=== PATIENT | female | born 1955 | race Caucasian/White ===

== ENCOUNTER 2017-02-24 13:39 | Inpatient (IN) | payer MEDICAID ==
[~2017-02-24] VITALS: Ht 170.2 cm; Wt 76.7 kg
[2017-02-24 15:40] VITALS: BP 128/74; PULSE 68; RESP 18; TEMP 97; O2SAT 98
[2017-02-24 16:03] VITALS: BP 145/73; PULSE 78; RESP 16; TEMP 97.5; O2SAT 94
[2017-02-24] MEDS ORDERED: MORPHINE 2 MG/ML INJ. SYRINGE ONE (17:12)
[2017-02-24] MEDS ORDERED: ACET325T53 PO (17:18)
[2017-02-24] MEDS ORDERED: HYDR-1189 PO (17:20)
[2017-02-24] MEDS ORDERED: ALBU2.5V7 INH (17:21)
[2017-02-24] MEDS ORDERED: CAL1TABL5 PO (17:23)
[2017-02-24] MEDS ORDERED: [UNRECOGNIZED DRUG - CODE] IV (17:42)
[2017-02-24] MEDS ORDERED: LEVO500T20 PO (17:46)
[2017-02-24] MEDS ORDERED: DIVA500T4 PO (17:46)
[2017-02-24] MEDS ORDERED: OLAN5TAB39 PO (18:36)
[2017-02-24] MEDS ORDERED: MAGN400O4 PO (18:36)
[2017-02-24] MEDS ORDERED: MORP2SYR3 IV (18:36)
[2017-02-24] MEDS ORDERED: ATII2 INJ (18:36)
[2017-02-24] MEDS ORDERED: HEPA500014 SUBCUT (18:41)
[2017-02-24] MEDS ORDERED: LEVO500P8 IV (18:41)
[2017-02-24] MEDS ORDERED: LORA2VIA31 (18:41)
[2017-02-24] MEDS ORDERED: THIA100T13 PO (18:45)
[2017-02-24] MEDS ORDERED: DITXL5 PO (18:45)
[2017-02-24] MEDS ORDERED: ONDA4TAB5 PO (18:45)
[2017-02-24] MEDS ORDERED: ZOLP10TA2 PO (18:46)
[2017-02-24] MEDS ORDERED: ALBUTEROL SULFATE 0.083% 2.5 MG/3 ML VIAL.NEB INH PRN (19:45)
[2017-02-24] MEDS ORDERED: ACETAMINOPHEN 325 MG TABLET PO PRN (19:45)
[2017-02-24 20:16] VITALS: BP 132/71; PULSE 75; RESP 18; TEMP 97.8; O2SAT 95
[2017-02-24 20:20] VITALS: BP 132/71; PULSE 77
[2017-02-24] MEDS ORDERED: MILK OF MAGNESIA 30 ML UDC PO SCH (20:45)
[2017-02-24] MEDS ORDERED: LORazepam 2 MG/ML VIAL IV SCH (20:45)
[2017-02-24] MEDS ORDERED: OLANZapine 5 MG TAB.RAPDIS PO SCH (21:00)
[2017-02-24] MEDS ORDERED: DIVALPROEX SODIUM 500 MG TAB.SR.24H (DEPAKOTE ER) PO SCH (21:00)
[2017-02-24] MEDS: OXYBUTYNIN CHLORIDE 5 MG TABLET PO SCH (21:25)
[2017-02-24] MEDS: DIVALPROEX SODIUM 500 MG TAB.SR.24H (DEPAKOTE ER) PO SCH (21:25)
[2017-02-24] MEDS: ZOLPIDEM TARTRATE 5 MG TABLET PO PRN (21:26)
[2017-02-25] VITALS (7 sets, daily range): BP systolic 106–136; BP diastolic 62–79; PULSE 72–104; RESP 16–21; TEMP 97.1–98.6; O2SAT 92–96
[2017-02-25 04:35] LABS: BILIRUBIN,URINE NEGATIVE (NEGATIVE); BLOOD, URINE 3+ (NEGATIVE); CLARITY/URINE CLEAR (CLEAR); COLOR,URINE YELLOW (YELLOW); GLUCOSE,URINE NEGATIVE (NEGATIVE); KETONES,URINE TRACE (NEGATIVE); LEUKOCYTE ESTERASE ,URINE NEGATIVE (NEGATIVE); NITRITE, URINE NEGATIVE (NEGATIVE); PROTEIN URINE NEGATIVE (NEGATIVE)
[2017-02-25 04:53] LABS: BACTERIA,URINE FEW /HPF (None Seen); RBC,URINE 50-80 /HPF (0-3)
[2017-02-25 04:54] LABS: MUCUS,URINE 1+ /LPF (None Seen)
[2017-02-25 06:56] LABS: BASOPHILS # (AUTO) 0.1 K/uL (0.0-0.2); BASOPHILS % (AUTO) 0.6 % (0.0-2.0); EOSINOPHILS # (AUTO) 0.1 K/uL (0.0-0.4); EOSINOPHILS % (AUTO) 1.1 % (0.0-4.0); HEMATOCRIT 29.3 % (36-48); HEMOGLOBIN 9.6 g/dL (12.0-16.0); LYMPHOCYTES # (AUTO) 3.5 K/uL (1.0-5.5); LYMPHOCYTES % (AUTO) 27.3 % (20.5-51.5); MEAN CORPUSCULAR HEMOGLOBIN 26 pg (27-31); MEAN CORPUSCULAR HGB CONC 33 % (32-36); MEAN CORPUSCULAR VOLUME 79 fL (79.0-98.0); MONOCYTES # (AUTO) 1.2 K/uL (0.0-1.0); MONOCYTES % (AUTO) 9.4 % (1.7-9.3); NEUTROPHILS # (AUTO) 8.1 K/uL (1.8-7.7); NEUTROPHILS % (AUTO) 61.6 % (40.0-70.0); PLATELET COUNT (AUTO) 189 K/uL (130-430); RED BLOOD CELL COUNT(AUTO) 3.71 MIL/uL (4.2-6.2); RED CELL DISTRIBUTION WIDTH 12.7 % (9.0-15.0)
[2017-02-25 07:08] LABS: CALCIUM 8.8 mg/dL (8.4-11.0); CREATININE 0.7 mg/dL (0.55-1.30); POTASSIUM 4.1 mmol/L (3.5-5.1)
[2017-02-25] MEDS ORDERED: LEVOFLOXACIN 500 MG/D5W 100 ML PIGGYBACK IV SCH (09:00)
[2017-02-25] MEDS: THIAMINE HCL 100 MG TABLET PO SCH (09:00)
[2017-02-25] MEDS: LEVOFLOXACIN 500 MG/D5W 100 ML IV SCH (10:14)
[2017-02-25] MEDS ORDERED: OLANZapine 5 MG TABLET PO ONE (14:15)
[2017-02-25] MEDS: CALCIUM CARBONATE/VITAMIN D3 1 TAB TABLET PO SCH (14:20)
[2017-02-25] MEDS: OXYBUTYNIN CHLORIDE 5 MG TABLET PO SCH ×2 (14:21→21:21)
[2017-02-25] MEDS: MORPHINE 2 MG/ML INJ. SYRINGE IVP PRN ×3 (14:22→23:26)
[2017-02-25] MEDS: IPRATROPIUM/ALBUTEROL SULFATE 3 ML AMPUL.NEB INH SCH ×3 (15:34→23:12)
[2017-02-25] MEDS: OLANZapine 5 MG TABLET PO SCH (21:21)
[2017-02-25] MEDS: DIVALPROEX SODIUM 500 MG TAB.SR.24H (DEPAKOTE ER) PO SCH (21:21)
[2017-02-25] MEDS: ZOLPIDEM TARTRATE 5 MG TABLET PO PRN (23:27)
[2017-02-26] VITALS (7 sets, daily range): BP systolic 88–120; BP diastolic 52–72; PULSE 71–92; RESP 18–20; TEMP 97.1–98.6; O2SAT 85–95
[2017-02-26] MEDS: IPRATROPIUM/ALBUTEROL SULFATE 3 ML AMPUL.NEB INH SCH ×6 (03:00→23:00)
[2017-02-26 06:46] LABS: BASOPHILS # (AUTO) 0.1 K/uL (0.0-0.2); BASOPHILS % (AUTO) 0.5 % (0.0-2.0); EOSINOPHILS # (AUTO) 0.2 K/uL (0.0-0.4); EOSINOPHILS % (AUTO) 1.9 % (0.0-4.0); HEMOGLOBIN 9.3 g/dL (12.0-16.0); LYMPHOCYTES # (AUTO) 3.2 K/uL (1.0-5.5); MEAN CORPUSCULAR HEMOGLOBIN 26 pg (27-31); MEAN CORPUSCULAR HGB CONC 32 % (32-36); MEAN CORPUSCULAR VOLUME 80 fL (79.0-98.0); MONOCYTES # (AUTO) 1.1 K/uL (0.0-1.0); MONOCYTES % (AUTO) 9.9 % (1.7-9.3); NEUTROPHILS # (AUTO) 6.8 K/uL (1.8-7.7); NEUTROPHILS % (AUTO) 59.7 % (40.0-70.0); PLATELET COUNT (AUTO) 214 K/uL (130-430); RED BLOOD CELL COUNT(AUTO) 3.65 MIL/uL (4.2-6.2); RED CELL DISTRIBUTION WIDTH 12.7 % (9.0-15.0); WHITE BLOOD COUNT (AUTO) 11.4 K/uL (4.8-10.8)
[2017-02-26 06:48] LABS: CALCIUM 8.9 mg/dL (8.4-11.0); CREATININE 0.77 mg/dL (0.55-1.30); POTASSIUM 3.8 mmol/L (3.5-5.1)
[2017-02-26 06:49] LABS: ALBUMIN 2.6 g/dL (3.4-4.8); TOTAL BILIRUBIN 0.6 mg/dL (0.0-1.0); TOTAL PROTEIN, SERUM 6.4 g/dL (6.4-8.3)
[2017-02-26] MEDS: MORPHINE 2 MG/ML INJ. SYRINGE IVP PRN (08:15)
[2017-02-26] MEDS: LEVOFLOXACIN 500 MG/D5W 100 ML IV SCH (08:15)
[2017-02-26] MEDS: OXYBUTYNIN CHLORIDE 5 MG TABLET PO SCH ×2 (09:00→21:46)
[2017-02-26] MEDS: CALCIUM CARBONATE/VITAMIN D3 1 TAB TABLET PO SCH (09:00)
[2017-02-26] MEDS: OLANZapine 5 MG TABLET PO SCH ×2 (09:00→21:46)
[2017-02-26] MEDS: THIAMINE HCL 100 MG TABLET PO SCH (09:00)
[2017-02-26] MEDS ORDERED: POLYMYXIN 500,000/BACIT.10,000 UNITS in NS IRR 1 L IR ONE (09:58)
[2017-02-26] MEDS ORDERED: LR 1,000 ML IV.SOLN IV ONE (10:26)
[2017-02-26] MEDS ORDERED: DEXAMETHASONE SOD PHOSPHATE 4 MG/ML VIAL IVP ONE (10:26)
[2017-02-26] MEDS ORDERED: METOCLOPRAMIDE HCL 10 MG/2 ML VIAL IVP ONE (10:26)
[2017-02-26] MEDS ORDERED: MIDAZOLAM HCL 5 MG/5 ML VIAL IVP ONE (10:26)
[2017-02-26] MEDS ORDERED: ePHEDrine sulfate 50 MG/ML VIAL IVP PRN (11:45)
[2017-02-26] MEDS ORDERED: ONDANSETRON HCL 4 MG/2 ML VIAL IVP PRN ×2 (11:45)
[2017-02-26] MEDS ORDERED: DIPHENHYDRAMINE INJ 50 MG/ML VIAL IVP PRN (11:45)
[2017-02-26] MEDS ORDERED: KETOROLAC TROMETHAMINE 30 MG VIAL IM PRN (11:45)
[2017-02-26] MEDS ORDERED: fentaNYL CITRATE/PF 100 MCG/2 ML AMP IVP PRN (11:45)
[2017-02-26] MEDS ORDERED: LR 1,000 ML IV ONE (11:45)
[2017-02-26] MEDS ORDERED: NALBUPHINE HCL 10 MG/ML AMP IVP PRN (11:45)
[2017-02-26] MEDS ORDERED: NALOXONE HCL 0.4 MG/ML AMP (NARCAN) IVP PRN (11:45)
[2017-02-26] MEDS ORDERED: MORPHINE SULFATE 10MG/10ML PF AMP ONE (12:00)
[2017-02-26 18:14] LABS: BASOPHILS # (AUTO) 0.1 K/uL (0.0-0.2); BASOPHILS % (AUTO) 0.8 % (0.0-2.0); HEMATOCRIT 29.5 % (36-48); HEMOGLOBIN 9.4 g/dL (12.0-16.0); LYMPHOCYTES # (AUTO) 1.1 K/uL (1.0-5.5); LYMPHOCYTES % (AUTO) 10.3 % (20.5-51.5); MEAN CORPUSCULAR HEMOGLOBIN 26 pg (27-31); MEAN CORPUSCULAR HGB CONC 32 % (32-36); MEAN CORPUSCULAR VOLUME 80 fL (79.0-98.0); MONOCYTES # (AUTO) 0.4 K/uL (0.0-1.0); MONOCYTES % (AUTO) 4.1 % (1.7-9.3); NEUTROPHILS # (AUTO) 9.1 K/uL (1.8-7.7); NEUTROPHILS % (AUTO) 84.8 % (40.0-70.0); PLATELET COUNT (AUTO) 245 K/uL (130-430); RED BLOOD CELL COUNT(AUTO) 3.67 MIL/uL (4.2-6.2); RED CELL DISTRIBUTION WIDTH 12.6 % (9.0-15.0); WHITE BLOOD COUNT (AUTO) 10.7 K/uL (4.8-10.8)
[2017-02-26] MEDS: ZOLPIDEM TARTRATE 5 MG TABLET PO PRN (21:46)
[2017-02-26] MEDS: DIVALPROEX SODIUM 500 MG TAB.SR.24H (DEPAKOTE ER) PO SCH (21:46)
[2017-02-27] VITALS (7 sets, daily range): BP systolic 92–116; BP diastolic 50–74; PULSE 63–85; RESP 16–18; TEMP 96.6–97.2; O2SAT 91–97
[2017-02-27] MEDS: IPRATROPIUM/ALBUTEROL SULFATE 3 ML AMPUL.NEB INH SCH ×6 (03:00→23:46)
[2017-02-27 06:35] LABS: BASOPHILS % (AUTO) 0.1 % (0.0-2.0); EOSINOPHILS % (AUTO) 0.1 % (0.0-4.0); HEMATOCRIT 25.8 % (36-48); HEMOGLOBIN 8.4 g/dL (12.0-16.0); LYMPHOCYTES # (AUTO) 1.5 K/uL (1.0-5.5); LYMPHOCYTES % (AUTO) 10.6 % (20.5-51.5); MEAN CORPUSCULAR HEMOGLOBIN 26 pg (27-31); MEAN CORPUSCULAR HGB CONC 32 % (32-36); MEAN CORPUSCULAR VOLUME 79 fL (79.0-98.0); MONOCYTES # (AUTO) 1.2 K/uL (0.0-1.0); MONOCYTES % (AUTO) 8.5 % (1.7-9.3); NEUTROPHILS % (AUTO) 80.7 % (40.0-70.0); PLATELET COUNT (AUTO) 219 K/uL (130-430); RED BLOOD CELL COUNT(AUTO) 3.25 MIL/uL (4.2-6.2); RED CELL DISTRIBUTION WIDTH 12.5 % (9.0-15.0)
[2017-02-27 06:59] LABS: WHITE BLOOD COUNT (AUTO) 13.7 K/uL (4.8-10.8)
[2017-02-27 07:30] LABS: ALBUMIN 2.5 g/dL (3.4-4.8); CREATININE 0.77 mg/dL (0.55-1.30); POTASSIUM 4.1 mmol/L (3.5-5.1); TOTAL BILIRUBIN 0.5 mg/dL (0.0-1.0); TOTAL PROTEIN, SERUM 6.1 g/dL (6.4-8.3)
[2017-02-27] MEDS: OXYBUTYNIN CHLORIDE 5 MG TABLET PO SCH ×2 (08:36→21:03)
[2017-02-27] MEDS: CALCIUM CARBONATE/VITAMIN D3 1 TAB TABLET PO SCH (08:36)
[2017-02-27] MEDS: LEVOFLOXACIN 500 MG/D5W 100 ML IV SCH (08:36)
[2017-02-27] MEDS: OLANZapine 5 MG TABLET PO SCH ×2 (08:36→21:03)
[2017-02-27] MEDS: THIAMINE HCL 100 MG TABLET PO SCH (08:37)
[2017-02-27] MEDS: ENOXAPARIN SODIUM 40 MG/0.4 ML SYRINGE SUBCUT SCH (08:50)
[2017-02-27] MEDS: HYDROcodone/ACETAMIN 5-325 MG TAB (NORCO/ VICODIN) PO PRN ×3 (09:45→21:45)
[2017-02-27] MEDS: DIVALPROEX SODIUM 500 MG TAB.SR.24H (DEPAKOTE ER) PO SCH (21:03)
[2017-02-28] VITALS (7 sets, daily range): BP systolic 102–132; BP diastolic 55–92; PULSE 65–101; RESP 16–19; TEMP 97–98; O2SAT 92–98; Ht 170.2 cm; Wt 76.7 kg
[2017-02-28] MEDS: MORPHINE 2 MG/ML INJ. SYRINGE IVP PRN ×2 (00:17→03:20)
[2017-02-28] MEDS: IPRATROPIUM/ALBUTEROL SULFATE 3 ML AMPUL.NEB INH SCH ×4 (03:00→16:29)
[2017-02-28 06:52] LABS: BASOPHILS % (AUTO) 0.2 % (0.0-2.0); EOSINOPHILS # (AUTO) 0.2 K/uL (0.0-0.4); EOSINOPHILS % (AUTO) 1.4 % (0.0-4.0); HEMOGLOBIN 8.5 g/dL (12.0-16.0); LYMPHOCYTES # (AUTO) 4.2 K/uL (1.0-5.5); LYMPHOCYTES % (AUTO) 29.5 % (20.5-51.5); MEAN CORPUSCULAR HEMOGLOBIN 26 pg (27-31); MEAN CORPUSCULAR HGB CONC 33 % (32-36); MEAN CORPUSCULAR VOLUME 79 fL (79.0-98.0); MONOCYTES # (AUTO) 1.3 K/uL (0.0-1.0); NEUTROPHILS # (AUTO) 8.5 K/uL (1.8-7.7); NEUTROPHILS % (AUTO) 59.9 % (40.0-70.0); PLATELET COUNT (AUTO) 223 K/uL (130-430); RED BLOOD CELL COUNT(AUTO) 3.27 MIL/uL (4.2-6.2); RED CELL DISTRIBUTION WIDTH 12.8 % (9.0-15.0); WHITE BLOOD COUNT (AUTO) 14.2 K/uL (4.8-10.8)
[2017-02-28] MEDS: LEVOFLOXACIN 500 MG/D5W 100 ML IV SCH (08:03)
[2017-02-28] MEDS: ENOXAPARIN SODIUM 40 MG/0.4 ML SYRINGE SUBCUT SCH (08:19)
[2017-02-28] MEDS: OLANZapine 5 MG TABLET PO SCH (08:19)
[2017-02-28] MEDS: OXYBUTYNIN CHLORIDE 5 MG TABLET PO SCH (08:19)
[2017-02-28] MEDS: CALCIUM CARBONATE/VITAMIN D3 1 TAB TABLET PO SCH (08:19)
[2017-02-28] MEDS: THIAMINE HCL 100 MG TABLET PO SCH (08:22)
[2017-02-28] MEDS: HYDROcodone/ACETAMIN 5-325 MG TAB (NORCO/ VICODIN) PO PRN ×2 (09:35→14:44)
== END 2017-02-28 20:21 | DRG 308 ==
LOC: SMU 15:52
PROVIDERS: ADMIT Family Medicine; ATTEND Internal Medicine
PROC: 0QS604Z Reposition Right Upper Femur with Internal Fixation Device, Open Approach (ICD-10-PCS; principal; 2017-02-26 10:00)
DX: S72.141A Displaced intertrochanteric fracture of right femur, initial encounter for closed fracture (principal); E44.1 Mild protein-calorie malnutrition; I10 Essential (primary) hypertension; J44.9 Chronic obstructive pulmonary disease, unspecified; F31.9 Bipolar disorder, unspecified; F25.9 Schizoaffective disorder, unspecified; M81.0 Age-related osteoporosis without current pathological fracture; M19.90 Unspecified osteoarthritis, unspecified site; D64.9 Anemia, unspecified; R32 Unspecified urinary incontinence; W18.39XA Other fall on same level, initial encounter; Y93.89 Activity, other specified; Y92.098 Other place in other non-institutional residence as the place of occurrence of the external cause; Y99.8 Other external cause status; Z91.81 History of falling; Z87.891 Personal history of nicotine dependence; Z86.73 Personal history of transient ischemic attack (TIA), and cerebral infarction without residual deficits; Z68.26 Body mass index [BMI] 26.0-26.9, adult
CPT/HCPCS: 36415; 76001; 80048; 80053; 81000-TC; 82962; 85025; 87081; 93005; 94640; 94760; 97110-GP; 97116-GP; 97530-GP; C1713; C1769; J1100; J1650; J1956; J2250; J2270; J2274; J2765; J3010; J7050; J7120